=== PATIENT | female | born 1970 | race Caucasian/White ===

== ENCOUNTER 2018-05-29 13:37 | Emergency (ER) | payer SELFPAY ==
[~2018-05-29] VITALS: Ht 167.6 cm; Wt 72.0 kg
[2018-05-29] MEDS ORDERED: IBUPROFEN 600MG TABLET PO STA (17:20)
[2018-05-29 17:36] VITALS: BP 108/60
== END 2018-05-29 18:25 | disposition home or self-care (01) ==
LOC: ER 15:19
DX: H60.92 Unspecified otitis externa, left ear (principal)
CPT/HCPCS: 99283